=== PATIENT | female | born 1990 | race Caucasian/White ===

== ENCOUNTER 2019-11-13 20:13 | Emergency (ER) | payer OTHER ==
[2019-11-13] MEDS ORDERED: ACETAMINOPHEN 325 MG TABLET (FP) PO ONE (20:22)
--- NOTE | 2019-11-13 20:22 | PDOC ---
Rapid Medical Evaluation Time Seen by Provider: 11/13/19 20:15 Medical Evaluation: 11/13/19 20:15 I have performed a brief in-person evaluation of this patient. CC: difficulty focusing and headache s/p head trauma 11/11 PE: No focal deficits. Orders: tylenol Patient will proceed to ED for further evaluation. Discharge Disposition - Diagnosis Headache - Referrals - Patient Instructions - Post Discharge Activity
[2019-11-13 20:23] VITALS: BP 110/68; PULSE 74; TEMP 98.5; BMI 30.2
[2019-11-13] MEDS ORDERED: ACETAMINOPHEN 325 MG TABLET (FP) ONE (20:48)
--- NOTE | 2019-11-13 20:58 | PDOC ---
Attending Attestation - Resident Resident Name: Kristopher Luna - ED Attending Attestation I have performed the following: I have examined & evaluated the patient, The case was reviewed & discussed with the resident, I agree w/resident's findings & plan - HPI HPI: 11/13/19 23:15 23 hrs ago at midnight, pt slipped off her bed and fell on the ground and struck the left side of her head on her night stand's corner. No LOC and no bleed. Pt slept and woke and had a normal day, but she feels slow and sluggish and she wants to be checked out. No PMHx and yanelis has no focal deficits. - Physicial Exam PE: 11/13/19 23:17 Normal HEENT normal TMs and normal pharynx CN 2-12 intact strength intact throughout; pt has normal neuro exam Pt has no abd pain and no flank pain Pt has normal heart and lungs. - Medical Decision Making 11/13/19 23:[address] scans Pt is stable to go home. 11/13/19 23:19 Patient Name: NORBERT CHATTERJEE THIS IS A PRELIMINARY REPORT FROM [facility] DATE OF SERVICE: 2019-11-13 22:10:27 IMAGES: 229 EXAM: HEAD CT WITHOUT CONTRAST HISTORY: Left sided head injury COMPARISON: None. FINDINGS: No intra or extra-axial hemorrhage or collection. No mass lesion or midline shift. Normal rodrigez white matter differentiation. The ventricles are not enlarged and are symmetric and midline in position. The calvarium is intact Large retention cyst or polyp in the right maxillary sinus and mild mucosal thickening in the left maxillary sinus The remaining visualized paranasal sinuses and mastoid air cells are clear. Discharge - Discharge Information Problems reviewed: Yes Clinical Impression/Diagnosis: Headache, Concussion Condition: Stable Disposition: HOME - Follow up/Referral Referrals: ON STAFF,NOT [Primary Care Provider] - - Patient Discharge Instructions Patient Printed Discharge Instructions: DI for Postconcussion Syndrome - Post Discharge Activity Work/Back to School Note: Back to Work
--- NOTE | 2019-11-13 22:24 | PDOC ---
History of Present Illness <Jake Sutton - Last Filed: 11/13/19 23:37> - History of Present Illness Initial Comments: 11/13/19 22:35 29F w/ no PMH p/w pain to L mid calvarium s/p fall. She was stepping out of bed when she lost her footing, fell and hit the side of her head on the nightstand. She did not hit the pointed corner. There was no bleeding.There was no LOC, n/v, or AMS (per ). She "saw stars" immediately afterward and felt dizzy w/ a headache for an hour. Then she fell asleep. She slept [id number] and saw stars when she woke up. They resolved within an hour, but the dizziness has persisted. She has also been struggling with maintaining a train of thought, light sensitivity, and with walking. SHe also reports reproducible discomfort in the L neck that travels along the SCM and upper L trap. Takes no meds. no blood thinners or OCP. No PMH, PSH: lumbar discectomy years ago SHx: occasional EtOH, denies tobacco and street drug use. ROS CONSTITUTIONAL: Absent: fever, chills, diaphoresis HEENT: Absent: rhinorrhea, nasal congestion, throat pain, throat swelling, difficulty swallowing, mouth swelling, ear pain, eye pain, visual Changes. Neck has full ROM ++light sensitivity ++ARBOLEDA CARDIOVASCULAR: Absent: chest pain, syncope RESPIRATORY: Absent: cough, shortness of breath GASTROINTESTINAL: Absent: abdominal pain GENITOURINARY: Absent: dysuria, frequency, urgency, hesitancy, hematuria, flank pain, genital pain MUSCULOSKELETAL: Absent: myalgia SKIN: Absent: rash HEMATOLOGIC/IMMUNOLOGIC: Absent: easy bleeding, easy bruising NEUROLOGIC: Absent: focal weakness or paresthesias, seizure, mental status changes, bladder or bowel incontinence PSYCHIATRIC: Absent: anxiety, depression, suicidal or homicidal ideation, hallucinations. PE GENERAL: Well developed, well nourished. Awake and alert. No acute distress. HEENT: Normocephalic, PERRLA, EOMI. No conjunctival pallor. Sclera are non-icteric. Moist mucous membranes. Oropharynx is clear. ++tenderness to palpation of L scalp superior to the helix. Small hematoma palpated NECK: Supple. Full ROM. Some tenderness to palpation along the SCM and upper trap, both on Left. CARDIOVASCULAR: Regular rate and rhythm. No murmurs, rubs, or gallops. Distal pulses are 2+ and symmetric. PULMONARY: No evidence of respiratory distress. Lungs clear to auscultation bilaterally. No wheezing, rales or rhonchi. ABDOMINAL: Soft. Non-tender. Non-distended. No rebound or guarding. No organomegaly. Normoactive bowel sounds. MUSCULOSKELETAL Normal range of motion at all joints. No bony deformities or tenderness. No CVA tenderness. EXTREMITIES: No cyanosis. No clubbing. No edema. No calf tenderness. SKIN: Warm and dry. Normal capillary refill. No rashes. No jaundice. NEUROLOGICAL: Alert, awake, appropriate. Cranial nerves 2-12 intact. No deficits to light touch in face, upper extremities and lower extremities. No motor deficits in the in face, upper extremities and lower extremities. Normoreflexic in the upper and lower extremities. Normal speech. Toes are down-going bilaterally. Gait is slow but without ataxia. Normal heel-to-toe, heel, and [id number] walking. Negative Romberg. No dysdiokokinesia. Normal memory (3-item task successful although I had to repeat instructions one time). PSYCHIATRIC: Cooperative. Good eye contact. Appropriate mood and affect. 11/13/19 22:46 11/13/19 22:49 MDM: fall and hit head. Feels headache and has dizziness and "feels off." -> CT head to r/o acute bleed. If normal, can send home w/ presumptive dx of concussion. <Kristopher Luna - Last Filed: 11/13/19 23:48> - General Chief Complaint: Head/Neck problem Stated Complaint: FALLS w/ HEAD INJURY Time Seen by Provider: 11/13/19 20:15 Past History <Jake Sutton - Last Filed: 11/13/19 23:37> - Medical History COPD: No - Psycho-Social/Smoking History Smoking History: Never smoked Information on smoking cessation initiated: No - Substance Abuse Hx (Audit-C & DAST Scrn) How often the patient has a drink containing alcohol: Never Score: In Men: 4 or > Positive; In Women: 3 or > Positive: 0 Screen Result (Pos requires Nsg. Audit-10AR): Negative In the last yr the pt used illegal drug/Rx for NonMed reason: No Score: Yes response is considered Positive: 0 Screen Result (Positive result requires Nsg. DAST-10): Negative <Kristopher Luna - Last Filed: 11/13/19 23:48> - Medical History Allergies/Adverse Reactions: Allergies Allergy/AdvReac Type Severity Reaction Status Date / Time shellfish derived Allergy Intermediate Verified 11/13/19 20:24 Penicillins Allergy Verified 11/13/19 20:24 *Physical Exam - Vital Signs Last Vital Signs Temp Pulse Resp BP Pulse Ox 98.5 F 74 19 110/68 100 11/13/19 20:19 11/13/19 20:19 11/13/19 20:19 11/13/19 20:19 11/13/19 20:19 <Jake Sutton - Last Filed: 11/13/19 23:37> - Vital Signs Last Vital Signs Temp Pulse Resp BP Pulse Ox 98.5 F 74 19 110/68 100 11/13/19 20:19 11/13/19 20:19 11/13/19 20:19 11/13/19 20:19 11/13/19 20:19 <Kristopher Luna - Last Filed: 11/13/19 23:48> ED Treatment Course - ADDITIONAL ORDERS Additional order review: Laboratory Results 11/13/19 21:05 Urine HCG, Qual Negative - Medications Given in the ED: ED Medications Discontinued Medications Generic Name Dose Route Start Last Admin Trade Name Freq PRN Reason Stop Dose Admin Acetaminophen 975 mg 11/13/19 20:22 11/13/19 20:56 Tylenol - PO 11/13/19 20:23 975 mg ONCE ONE Administration <Jake Sutton - Last Filed: 11/13/19 23:37> - ADDITIONAL ORDERS Additional order review: Laboratory Results 11/13/19 21:05 Urine HCG, Qual Negative - RADIOLOGY Radiology Studies Ordered: Category Date Time Status HEAD CT WITHOUT CONTRAST [CT] Stat CT Scan 11/13/19 21:35 Ordered - Medications Given in the ED: ED Medications Discontinued Medications Generic Name Dose Route Start Last Admin Trade Name Freq PRN Reason Stop Dose Admin Acetaminophen 975 mg 11/13/19 20:22 11/13/19 20:56 Tylenol - PO 11/13/19 20:23 975 mg ONCE ONE Administration <Kristopher Luna - Last Filed: 11/13/19 23:48> Discharge - Discharge Information Problems reviewed: Yes - Admission No <Jake Sutton - Last Filed: 11/13/19 23:37> <Kristopher Luna - Last Filed: 11/13/19 23:48> - Discharge Information Clinical Impression/Diagnosis: Headache Qualifiers: Headache type: unspecified Headache chronicity pattern: acute headache Intractability: not intractable Qualified Code(s): R51 - Headache Concussion Qualifiers: Encounter type: initial encounter Loss of consciousness presence/duration: without LOC Qualified Code(s): S06.0X0A - Concussion without loss of consci ousness, initial encounter Condition: Good Disposition: HOME - Follow up/Referral Referrals: Lemuel Tineo MD [Staff Physician] - - Patient Discharge Instructions Patient Printed Discharge Instructions: DI for Postconcussion Syndrome Additional Instructions: You were seen today for a headache and slow thinking after falling and hitting your head last night. The CT scan of your head did not show any life threatening injuries. You likely have a concussion. I have attached a packet of information with more information. You can take over the counter Tylenol (Acetaminophen) and/or Tylenol (Ibuprofen) as needed for pain. Take as directed on the package insert. Do not take more than the recommended dose. You can follow up with a neurologist. I have entered a referral for you to see Dr. Tineo. Call on the next business day to schedule an appointment. The number is included in this packet. A copy of todays results are attached to this packet. Take it to the appointment so your doctor can review them. Return to the ED for new or worsening symptoms. Watch for persistent vomiting, difficulty standing and walking, or loss of consciousness. These could be signs of a more serious injury. Print Language: KOREAN - Post Discharge Activity Work/Back to School Note: Back to Work
== END 2019-11-13 23:56 | disposition home or self-care (01) ==
LOC: JER 20:13
DX: R51 Headache (principal); S06.0X0A Concussion without loss of consciousness, initial encounter
CPT/HCPCS: 70450-TC; 84703; 99284-25

== ENCOUNTER 2021-02-16 20:54 | Emergency (ER) | payer OTHER ==
[2021-02-16 21:20] VITALS: TEMP 98.6; BMI 32.0
[2021-02-16] MEDS ORDERED: ACETAMINOPHEN 325 MG TABLET (FP) PO ONE (22:21)
[2021-02-16 22:28] LABS: BASO % 0.6 % (0-2.0); EOS % 0.9 % (0-4.5); HEMATOCRIT 34.6 % (32.4-45.2); LYMPH % 19.5 % (8-40); MCH 28.6 pg (25.7-33.7); MCHC 34.8 g/dl (32.0-36.0); MEAN CELL VOLUME 82.3 fl (80-96); MEAN PLT VOLUME 7.5 fl (7.5-11.1); PLATELET COUNT 352 10^3/uL (134-434); RBC 4.21 M/mm3 (3.60-5.2); RDW 12.8 % (11.6-15.6)
[2021-02-16] MEDS ORDERED: ACETAMINOPHEN 325 MG TABLET (FP) ONE (22:31)
[2021-02-16 22:34] LABS: EPI CELLS >36 /uL (0-25.1); HYALINE CASTS 8 /uL (0-3.1); PH,URINE 5.5 (5.0-8.0); URINE APPEARANCE CLOUDY; URINE BACTERIA 3111 /uL (0-1359); URINE BILIRUBIN NEGATIVE (NEGATIVE); URINE COLOR YELLOW; URINE GLUCOSE (UA) NEGATIVE (NEGATIVE); URINE KETONE TRACE (NEGATIVE); URINE LEUK ESTERASE NEGATIVE (NEGATIVE); URINE NITRITE NEGATIVE (NEGATIVE); URINE PROTEIN 1+ (NEGATIVE); URINE WBC 54 /uL (0-25.8)
[2021-02-16 22:50] LABS: CALCIUM 8.7 mg/dL (8.5-10.1)
[2021-02-16 22:52] LABS: ALBUMIN 3.6 g/dl (3.4-5.0); BLOOD UREA NITROGEN 11.7 mg/dL (7-18); MAGNESIUM 1.9 mg/dL (1.8-2.4)
[2021-02-16 22:54] LABS: CREATININE 0.9 mg/dL (0.55-1.3)
[2021-02-16 22:55] LABS: BILIRUBIN,TOTAL 0.2 mg/dL (0.2-1)
[2021-02-16 23:20] VITALS: BP 97/61; PULSE 97
== END 2021-02-16 23:20 | disposition home or self-care (01) ==
LOC: JER 20:54
DX: R25.1 Tremor, unspecified (principal)
CPT/HCPCS: 36415; 80053; 81003; 83735; 84703; 85025; 87086; 93005; 93010; 99284-25